=== PATIENT | female | born 1970 | race Hispanic/Latino ===

== ENCOUNTER → 2024-06-26 | Day surgery (SDC) | payer OTHER ==
[~2024-06-26] MED LIST: ALLEGRA-D 24 H1 EACH PO; COLLAGEN 15001 EACH PO; CURCUMIN1 GM PO; FENTANYL CITRATE/PF 100MCG/2 ML INJ ONE; GINGER500 MG PO; HYDROCHLOROTHIA25 MG PO; HYOSCYAMINE SULFATE 0.5 MG/ML INJ ONE; LIDOCAINE HCL 2% LOCAL INJ 5 ML SDV VIAL INJ ONE; MONTELUKAST SOD10 MG PO; OMEGA 3 1,0001 EACH PO; PROPOFOL IV EMULSION 50 ML IV ONE; ZYRTEC10 M3 PO
[2024-06-26] MEDS: LACTATED RINGER'S 1,000 ML ONE (09:01)
[2024-06-26 10:54] VITALS: TEMP 97
[2024-06-26 11:30] VITALS: BP 155/88; PULSE 67; RESP 16; O2SAT 97
== END | disposition home or self-care (01) ==
LOC: OR 08:22
PROVIDERS: ATTEND Internal Medicine Gastroenterology
DX: Z09 Encounter for follow-up examination after completed treatment for conditions other than malignant neoplasm (principal); D12.0 Benign neoplasm of cecum; K57.30 Diverticulosis of large intestine without perforation or abscess without bleeding; K64.8 Other hemorrhoids; I10 Essential (primary) hypertension; J45.909 Unspecified asthma, uncomplicated; E66.01 Morbid (severe) obesity due to excess calories; Z01.810 Encounter for preprocedural cardiovascular examination; Z79.899 Other long term (current) drug therapy; Z68.41 Body mass index [BMI] 40.0-44.9, adult
CPT/HCPCS: 45380; 93005; J1980; J2003; J2704; J3010; J7121; 45384